=== PATIENT | male | born 1975 | race African-American/Black ===

== ENCOUNTER 2020-10-21 16:07 | Emergency (ER) | payer SELFPAY ==
[2020-10-21] MEDS ORDERED: Take Home: Naproxen 500 MG Tab, 4 Tab Pack PO ONE (16:32)
[2020-10-21 16:34] VITALS: BP 185/81; PULSE 67
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
== END 2020-10-21 16:42 ==
LOC: VM.ED 16:07 → VM.LAB 16:07 → EDSTATUS 16:17 → VM.ED 16:42
DX: M25.531 Pain in right wrist (principal); M25.532 Pain in left wrist; Z20.822 Contact with and (suspected) exposure to COVID-19
CPT/HCPCS: 99283; A9270-GY; U0002

== ENCOUNTER 2020-10-23 17:16 | Emergency (ER) | payer MEDICAID ==
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
[2020-10-23 18:02] VITALS: BP 157/71; PULSE 71
== END 2020-10-23 18:00 | disposition home or self-care (01) ==
LOC: VM.ED 17:16
DX: M79.641 Pain in right hand (principal); M79.642 Pain in left hand
CPT/HCPCS: 99283; 99284

== ENCOUNTER 2020-11-21 06:58 | Emergency (ER) | payer MEDICAID ==
[2020-11-21 07:11] VITALS: BP 186/99; PULSE 51
== END 2020-11-21 07:20 | disposition left against medical advice (07) ==
LOC: VM.ED 06:58
DX: R20.0 Anesthesia of skin (principal); Z53.21 Procedure and treatment not carried out due to patient leaving prior to being seen by health care provider

== ENCOUNTER 2020-11-27 15:14 | Emergency (ER) | payer MEDICAID ==
[2020-11-27] MEDS ORDERED: Ketorolac 30 MG/ML SDV IM ONE (15:36)
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
[2020-11-27 16:39] VITALS: BP 158/65; PULSE 64
--- NOTE | 2020-11-27 16:58 | CR ---
[id number] RAD/RAD Wrist Left 3V Min EXAM: 3 VIEWS LEFT WRIST. INDICATION: BILATERAL WRIST PAIN. COMPARISON: None. DISCUSSION: No fracture, dislocation or other acute osseous abnormality. IMPRESSION: 1. No acute osseous abnormalities. Sohan Washington DO 11/27/20 [id number] Thank you for allowing us to participate in the care of your patient.
--- NOTE | 2020-11-27 16:59 | CR ---
[id number] RAD/RAD Wrist Right 3V Min EXAM: 3 VIEWS RIGHT WRIST. INDICATION: BILATERAL WRIST PAIN. COMPARISON: None. DISCUSSION: No fracture, dislocation or other osseous abnormality. IMPRESSION: 1. No acute osseous abnormalities. Sohan Washington DO 11/27/20 [id number] Thank you for allowing us to participate in the care of your patient.
== END 2020-11-27 16:30 ==
LOC: VM.ED 15:14
DX: M25.531 Pain in right wrist (principal); M25.532 Pain in left wrist; Z20.822 Contact with and (suspected) exposure to COVID-19
CPT/HCPCS: 73110-50; 73110-LT; 73110-RT; 99283; 99283-25; U0002